=== PATIENT | male | born 1985 | race Caucasian/White ===

== ENCOUNTER 2017-02-04 15:45 | Emergency (ER) | payer BC, OTHER ==
[2017-02-04 15:47] VITALS: BP 106/60; PULSE 51; TEMP 97.6; BMI 23.7
--- NOTE | 2017-02-04 17:23 | PDOC ---
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 Patient states is up- to-date on tetanus and has no medical history. Timing/Duration: 1 hour Severity: mild Associated Symptoms: reports: denies symptoms Past History - Past Medical History Allergies/Adverse Reactions: Allergies Allergy/AdvReac Type Severity Reaction Status Date / Time No Known Allergies Allergy Verified 02/04/17 15:46 Home Medications: Ambulatory Orders Cyclobenzaprine HCl [Flexeril] 10 mg PO TID #30 tablet 05/16/15 Ibuprofen [Motrin -] 800 mg PO TID #30 tablet 05/16/15 - Immunization History Immunization Up to Date: Yes - Psycho/Social/Smoking Cessation Hx Suicidal Ideation: No Smoking History: Never smoked Hx Alcohol Use: No Drug/Substance Use Hx: No Patient Lives Alone: No Lives with/in: spouse/SO Review of Systems - Review of Systems Able to Perform ROS?: Yes Constitutional: No: Symptoms Reported Integumentary: Yes: See HPI Hematologic/Lymphatic: No: Symptoms Reported *Physical Exam - Vital Signs Last Vital Signs Temp Pulse Resp BP Pulse Ox 97.6 F 51 L 18 106/60 100 02/04/17 15:46 02/04/17 15:46 02/04/17 15:46 02/04/17 15:46 02/04/17 15:46 - Physical Exam General Appearance: Yes: Nourished, Appropriately Dressed. No: Apparent Distress Integumentary: positive: Other (Patient with noted 14 cm linear filet laceration to the lateral aspect of right forearm extending from the elbow to forearm. Surrounding skin intact. ) Procedures - Laceration/Wound Repair Right Arm Wound Length: 12.6 to 20 cm Wound Explored: clean, no foreign body present Wound's Depth, Shape: superficial, linear Irrigated w/ Saline: Yes Betadine Prep: Yes Anesthesia: 1% Lidocaine Amount of Anesthetic (ccs): 4 Wound Repaired With: Sutures Suture Size/Type: 5:0 Number of Sutures: 31 Sterile Dressing Applied: Yes (bacitracin with Tefla) Medical Decision Making - Medical Decision Making 02/04/17 17:23 Patient status post injury to his right forearm while taking out frayed wire from a ceiling. Repair done without difficulty. Patient to return in 10-12 days for suture removal. Laceration repair instructions given. *DC/Admit/Observation/Transfer Diagnosis at time of Disposition: Laceration of arm, right, complicated Qualifiers: Encounter type: initial encounter Qualified Code(s): S41.111A - Laceration without foreign body of right upper arm, initial encounter - Discharge Dispostion Disposition: HOME Condition at time of disposition: Good - Patient Instructions Printed Discharge Instructions: DI for Laceration Repair -- Complex Suture Additional Instructions: Please return in 10-12 days for suture removal. If he noticed any redness or swelling or drainage from the site, return to the ED sooner. Otherwise keep area clean and dry as discussed covering with bacitracin and a nonstick dressing.
== END 2017-02-04 17:24 | disposition home or self-care (01) ==
LOC: JERFT 15:45
PROC: 0HQBXZZ Repair Right Upper Arm Skin, External Approach (ICD-10-PCS; principal; 2017-02-04)
DX: S51.811A Laceration without foreign body of right forearm, initial encounter (principal); W26.8XXA Contact with other sharp object(s), not elsewhere classified, initial encounter; Y93.89 Activity, other specified; Y92.9 Unspecified place or not applicable; Y99.0 Civilian activity done for income or pay
CPT/HCPCS: 99281-25

== ENCOUNTER 2017-02-15 12:56 | Emergency (ER) | payer BC ==
[2017-02-15 13:10] VITALS: BP 112/56; PULSE 50; TEMP 98; BMI 23.7
--- NOTE | 2017-02-15 14:10 | PDOC ---
Suture Removal/Wound Check HPI - History of Present Illness Chief Complaint: Suture/Staple Removal(Here) Stated Complaint: SUTURE REMOVAL Time Seen by Provider: 02/15/17 13:57 History Source: Yes: Patient Exam Limitations: Yes: No Limitations Treated at: [facility] ED - Previous ED Treatment Type of procedure performed on last visit: Yes: Laceration Repair Tetanus Immunization: Yes: Up to Date Antibiotics Prescribed: No Past History - Past Medical History Allergies/Adverse Reactions: Allergies No Known Allergies Allergy (Verified 02/15/17 13:10) Home Medications: Ambulatory Orders Cyclobenzaprine HCl [Flexeril] 10 mg PO TID #30 tablet 05/16/15 Ibuprofen [Motrin -] 800 mg PO TID #30 tablet 05/16/15 General: Yes: no pertinent history Surgical History: Yes: No Surgical History - Immunization History Immunizations Up to Date: Yes - Social History Smoking Status: Never smoked Suture Removal/Wound Check PE - Physical Exam Laceration/Wound Check Symptoms: reports: None Current Severity Level: None Maximum Severity Level: None Pain Localization: None *Review of Systems - Review of Systems Constitutional: No: Symptoms Reported Integumentary: No: Erythema Medical Decision Making - Medical Decision Making 02/15/17 14:11 18 sutures removed without difficulty, There is some localized suture irritation otherwise unremarkable. Patient reports that some sutures came out on their own. No open area or wound dehiscence. *DC/Admit/Observation/Transfer Diagnosis at time of Disposition: Visit for suture removal - Discharge Dispostion Disposition: HOME Condition at time of disposition: Good Admit: No - Patient Instructions Additional Instructions: Please keep area clean and dry Follow-up as needed - Post Discharge Activity Work/School Note: Back to Work
== END 2017-02-15 14:25 | disposition home or self-care (01) ==
LOC: JERFT 12:56
DX: Z48.02 Encounter for removal of sutures (principal)
CPT/HCPCS: 99281-25

== ENCOUNTER 2024-01-05 18:01 | Emergency (ER) | payer OTHER ==
[2024-01-05 18:19] VITALS: BP 105/64; PULSE 87; RESP 20; TEMP 98.4; BMI 25.0
[2024-01-05] MEDS ORDERED: ACETAMINOPHEN 325 MG TABLET (FP) ONE (19:38)
[2024-01-05] MEDS: ACETAMINOPHEN 325 MG TABLET (FP) PO ONE (19:42)
== END 2024-01-05 20:33 | disposition home or self-care (01) ==
LOC: JER 18:01
DX: M25.532 Pain in left wrist (principal); X50.0XXA Overexertion from strenuous movement or load, initial encounter
CPT/HCPCS: 73110-TC-LT-FY; 99283-25

== ENCOUNTER 2025-03-26 20:12 | Emergency (ER) | payer BC, OTHER ==
[2025-03-26 20:25] VITALS: BP 119/78; PULSE 80; RESP 20; TEMP 98; BMI 25.0
[2025-03-26] MEDS ORDERED: KETOROLAC TROMETHAMINE 30 MG/1 ML VIAL ONE (21:36)
[2025-03-26] MEDS ORDERED: METHOCARBAMOL 500 MG TABLET ONE (21:36)
[2025-03-26] MEDS: KETOROLAC TROMETHAMINE 30 MG/1 ML VIAL IVPUSH ONE (21:45)
[2025-03-26] MEDS: METHOCARBAMOL 500 MG TABLET PO ONE (21:45)
[2025-03-26] MEDS: SODIUM CHLORIDE 0.9% 500 ML INFUS.BAG IV ONE (21:45)
[2025-03-26 21:58] LABS: ABSOLUTE IMMATURE GRANULOCYTES 0.13 x10^3/uL (0.0-0.031); BASOPHILS # 0.06 x10^3/uL (0.01-0.08); EOSINOPHIL % 1.1 % (0.8-7.0); EOSINOPHILS # 0.19 x10^3/uL (0.04-0.54); MCHC 33.8 g/dl (32.3-36.5); MEAN CELL VOLUME 96.3 fl (79.0-92.2); MEAN PLT VOLUME 10.2 fl (9.4-12.4); MONOCYTE # 1.12 x10^3/uL (0.30-0.82); MONOCYTE % 6.4 % (5.3-12.2); RDW 12.8 % (12.0-15.6)
[2025-03-26] MEDS: LACTATED RINGERS SOLUTION 1000 ML INFUS.BAG IV ONE (22:03)
[2025-03-26 22:16] LABS: GLUCOSE,RANDOM 74.0 mg/dL (74-106); TOT PROT 7.0 g/dl (6.4-8.2)
[2025-03-26 22:17] LABS: CO2 25.0 mmol/L (21-32)
[2025-03-26 22:18] LABS: ALK PHOS 50.0 U/L (40-150)
[2025-03-26 22:21] LABS: SGOT/AST 57.0 U/L (5-34); SGPT/ALT 78.0 U/L (0-55)
[2025-03-26 22:22] LABS: CREATININE 1.31 mg/dL (0.55-1.3)
== END 2025-03-26 23:44 | disposition home or self-care (01) ==
LOC: JERFT 20:12
PROC: 3E0333Z Introduction of Anti-inflammatory into Peripheral Vein, Percutaneous Approach (ICD-10-PCS; principal; 2025-03-26)
DX: M54.50 Low back pain, unspecified (principal); E86.0 Dehydration; R53.83 Other fatigue; X50.1XXA Overexertion from prolonged static or awkward postures, initial encounter; Y99.0 Civilian activity done for income or pay
CPT/HCPCS: 36415; 80053; 82550; 85025; 99284-25